=== PATIENT | male | born 1985 | race Caucasian/White ===

== ENCOUNTER 2017-02-04 19:49 | Emergency (ER) | payer SELFPAY ==
--- NOTE | 2017-02-04 19:55 | ED Physician Chart ---
Chief Complaint/HPI - Patient Information Date Seen:: 02/04/17 Time Seen:: 19:52 Chief Complaint:: chest pain History of Present Illness:: 31-year-old male complains of acute, minor, constant, aching, nonradiating, 3 out of 10, chest pain that started 2 hours ago. Patient reports that this is in the setting of recent drinking alcohol earlier today. Has associated anxiety. Denies fever, nausea, vomiting, numbness, tingling, chills, headache, acute vision changes, abdominal pain, dysuria, gross hematuria, gross blood in stool. Review of Systems - Review of Systems Other: Complete system review otherwise unremarkable except as noted in history of present illness. Past Medical History - Past Medical History Past Medical History: No significant medical hx Family History: None Social History: Non Smoker, Alcohol, No Drug Use Surgical History: None Psychiatricy History: None Medication: None Family Medical History - Family Member Brother Ethnicity: Living Status: Still Living Hx Family Cancer: No Hx Family Coronary Artery Disease: No Hx Family Congestive Heart Failure: No Physical Exam - Physical Examination Other:: INITIAL VITAL SIGNS: Reviewed by me GENERAL: Alert and interactive. No acute distress HEAD: Head is normocephalic and atraumatic EYES: EOMI. PERRL. No scleral icterus. No conjunctival injection ENT: Moist mucous membranes. NECK: Supple. No masses. Full range of motion RESPIRATORY: No tachypnea. Clear breath sounds bilaterally. No wheezing, rales, or rhonchi CV: Regular rate and rhythm. No murmurs, rubs, or gallops ABDOMEN: Soft, non-distended, non-tender. No guarding. No rebound. No masses. EXTREMITIES: No deformity. No cyanosis. No edema. SKIN: Warm and dry. No obvious rashes. NEUROLOGIC: Alert and oriented. Face is symmetric. Speech is normal. Moves all extremities equally. Motor and sensory distally intact. Labs/Radiology/EKG Results - Radiology Results Results: Single AP VIEW Portable Chest X-ray was interpreted independently and contemporaneously by Aaron Rodriguez MD: No cardiomegaly Normal mediastinum No lung infiltrates No pneumothorax No soft tissue or bony abnormalities - EKG Interpretations Comments:: 12-lead EKG Interpretation by Aaron Rodriguez MD: Sinus tachycardia with ventricular rate of 101 beats per minute Normal axis Normal intervals No acute ST or T wave changes. No obvious STEMI ED Septic Shock - . Is Septic Shock (SBP<90, OR Lactate>4 mmol\L) present?: No Reassessment (Disposition) - Reassessment Reassessment:: Patient presented with mild chest pain started 2 hours prior to arrival. Troponins are negative. Chest x-ray unremarkable. Other labs essentially unremarkable. Gave aspirin and IV fluids here in the ER. Symptoms have resolved. Discussed the findings with the patient. Recommended follow-up with primary care within 2 days. Return precautions given. Patient understands reasonable plan. Reassessment Condition:: Improved - Diagnosis Diagnosis:: Acute chest pain, unspecified - Aftercare/Follow up Instructions Aftercare/Follow-Up Instructions:: Counseled pt regarding lab results/diagnosis & need follow up, Refer to Discharge Instructions - Patient Disposition Discharge/Transfer:: Home Time:: 20:46 Condition at Disposition:: Improved ED Discharge Plan - Patient Disposition Admit/Discharge/Transfer: PT DISCHARGED HOME Condition at Disposition: Improved Instructions: Chest Pain Observation
[2017-02-04] MEDS ORDERED: Aspirin 81mg Chewable Tab PO STA (19:56)
[2017-02-04] MEDS ORDERED: Aspirin 81mg Chewable Tab ONE (20:02)
[2017-02-04] MEDS ORDERED: Sodium Chloride 0.9% 1,000 ML IV ONE (20:05)
[2017-02-04 20:20] LABS: % BASOPHILS 0.1 % (0.0-2.0); % EOSINOPHILS 0.4 % (0.0-5.0); % LYMPHOCYTES 50.4 % (20.0-50.0); % MONOCYTES 3.2 % (2.0-10.0); % NEUTROPHILS 45.9 % (40.0-80.0); HEMATOCRIT 43.5 % (39.0-49.0); HEMOGLOBIN 14.6 gm/dL (13.2-17.3); MEAN CELL VOLUME 98.2 fl (80-99); MEAN CORPUSCULAR HGB CONC 33.6 pg (28.0-36.0); MEAN PLATELET VOLUME 8.1 fl; NEUTROPHILE ABSOLUTE 4.4 Th/cmm (1.8-8.0); PLATELET COUNT 406 Th/cmm (150-400); RED BLOOD COUNT 4.43 Mil/cmm (4.30-5.70); RED CELL DISTRIBUTION WIDTH 13.3 % (11.5-20.0); WHITE BLOOD COUNT 9.5 Th/cmm (4.8-10.8)
[2017-02-04 20:31] LABS: INR 0.93 (0.5-1.4); PROTHROMBIN TIME (TEST) 9.7 SECONDS (9.5-11.5)
[2017-02-04 20:34] LABS: ALB/GLOB RATIO 1.4 (1.0-1.8); ALKALINE PHOSPHATASE 51 U/L (34-104); ANION GAP 12.2 (7.0-16.0); BILIRUBIN,TOTAL 0.3 mg/dL (0.3-1.0); BUN - UREA NITROGEN 6 mg/dL (7-25); BUN/CREATININE RATIO 7.5; CALCIUM SERUM 9.4 mg/dL (8.6-10.3); CARBON DIOXIDE 25.5 mEq/L (21.0-31.0); CHLORIDE 102 mEq/L (98-107); CREATININE - SERUM 0.8 mg/dL (0.7-1.3); GLUCOSE 120 mg/dL (70-105); POTASSIUM SERUM 3.7 mEq/L (3.5-5.1); SGOT 54 U/L (13-39); SGPT/ALT 30 U/L (7-52); SODIUM SERUM 136 mEq/L (136-145)
[2017-02-04 20:35] LABS: TROP I < 0.01 ng/mL (0.01-0.05)
[2017-02-04 20:36] LABS: BNP 20.6 pg/mL (5.0-100.0)
--- NOTE | 2017-02-05 11:13 | Diagnostic Imaging Report ---
Portable chest x-ray Time: 2051 History: Chest pain Allowing for portable technique the heart size is normal. No focal pulmonary parenchymal processes. No hilar or mediastinal abnormalities. Impression: No acute abnormalities.
== END 2017-02-04 21:00 | disposition home or self-care (01) ==
LOC: ER 19:49
DX: R07.89 Other chest pain (principal)
CPT/HCPCS: 36415-UA; 71010-TC; 80053-TC; 83880-TC; 84484-TC; 85025-TC; 85379-TC; 85610-TC; 93005; J7030; Z7610